=== PATIENT | female | born 1995 | race Caucasian/White ===

== ENCOUNTER 2016-04-16 18:05 | Emergency (ER) | payer MEDICAID ==
[~2016-04-16] VITALS: Ht 160 cm; Wt 53.2 kg
[2016-04-16 18:07] VITALS: Ht 160 cm; Wt 53.2 kg
--- NOTE | 2016-04-16 19:50 | ERD ---
ER Documentation Chief Complaint Date/Time DATE: 04/16/16 TIME: 19:49 Chief Complaint spotting today , abd cramping , 5 weeks preg , lmp 03/10/16 HPI 21-year-old female is A0 with last measure. On March 10, 2016 comes in with vaginal spotting and pelvic cramping for the past day. She states that she has some symptoms yesterday and went to the clinic and had a positive test. She denies fevers, chills, vomiting. She denies dizziness, chest pain or shortness breath. ROS All systems reviewed and are negative except as per history of present illness. Medications Home Meds Reported Medications [None] No Conflict Check 12/17/09 Allergies Allergies: Coded Allergies: No Known Drug Allergies (Verified Allergy, Mild, 12/17/09) PMhx/Soc Medical and Surgical Hx: pt denies Medical Hx, pt denies Surgical Hx History of Surgery: No Anesthesia Reaction: No Hx Neurological Disorder: No Hx Respiratory Disorders: No Hx Cardiac Disorders: No Hx Psychiatric Problems: No Hx Miscellaneous Medical Probl: No Hx Alcohol Use: No Hx Substance Use: No Hx Tobacco Use: No Smoking Status: Never smoker Physical Exam Vitals Vital Signs Date Time Temp Pulse Resp B/P Pulse Ox O2 Delivery O2 Flow Rate FiO2 04/16/16 21:25 99.2 70 17 117/79 100 Room Air 04/16/16 18:07 98.1 90 18/135 79 Physical Exam General: Well-developed, well-nourished. The patient appears in no acute distress. HEENT: Head is normocephalic, atraumatic. No scleral icterus. Neck: Supple. Nontender. Lungs: Clear to auscultation. Normal air movement. Heart: Regular rate and rhythm. S1 and S2 are normal. No murmurs, gallops, or rubs. Abdomen: Soft, nontender, nondistended. Bowel sounds are normoactive. Extremities: No clubbing or cyanosis. Normal pulses. Moving extremities x 4. No weakness. Neurologic: Alert and oriented 3. No focal deficits. Skin: Normal turgor. No rash or lesions. Result Diagram: 04/16/161934 Results 24 hrs Laboratory Tests Test 04/16/16 19:35 Basophils # 0.010^3/ul Basophils % 0.3% Beta HCG, Quantitative 56883.0mIU/ml Eosinophils # 0.010^3/ul Eosinophils % 0.0% Hematocrit 39.5% Hemoglobin 13.8g/dl Lymphocytes # 1.110^3/ul Lymphocytes % 17.0% Mean Corpuscular Hemoglobin 31.9pg Mean Corpuscular Hemoglobin Concent 34.9g/dl Mean Corpuscular Volume 91.4fl Mean Platelet Volume 9.9fl Monocytes # 0.610^3/ul Monocytes % 8.4% Neutrophils # 4.810^3/ul Neutrophils % 74.0% Nucleated Red Blood Cells # 0.010^3/ul Nucleated Red Blood Cells % 0.0/100WBC Platelet Count 57503^3/UL Red Blood Count 4.3210^6/ul Red Cell Distribution Width 11.9% Urine Bilirubin NEGATIVE Urine Clarity CLEAR Urine Color LT. YELLOW Urine Epithelial Cells FEW Urine Glucose NEGATIVE% Urine Hemoglobin TRACE Urine Ketones 40 Urine Leukocyte Esterase NEGATIVE Urine Microscopic RBC 0-2/HPF Urine Microscopic WBC 0-2/HPF Urine Nitrite NEGATIVE Urine Specific [place] 1.015 Urine Total Protein NEGATIVE Urine Urobilinogen 0.2 E.U./dL Urine pH 6.0 White Blood Count 6.510^3/ul PROCEDURE: US OB. CLINICAL INDICATION: with spotting. TECHNIQUE: Transabdominal and transvaginal imaging of the uterus was performed. Images are reviewed on a high-resolution PACS workstation. COMPARISON: None available FINDINGS: Intrauterine is identified. The crown-rump length equals 0.26 cm. The estimated gestational age equals 6 weeks and 1 day by ultrasound criteria. pole and yolk sac are visualized. Normal cardiac activity is identified and measures 104 beats per minute. There is 2.5 x 1.5 x 1.7 cm subchorionic bleed. There is a cyst in the right ovary measures 2.5 x 2.2 x 1.6 cm. The left ovary is unremarkable. The ovaries demonstrate vascular Doppler flow. No free fluid is noted. IMPRESSION: 1. Single live intrauterine with an estimated gestational age of 6 weeks and 1 day by ultrasound criteria and an estimated date of delivery of . 2. A 2.5 x 1.5 x 1.7 cm subchorionic bleed. 3. A 2.5 cm right ovarian cyst. RPTAT: QQ .Loraine Pimentel MD, MD Date Time Electronically viewed and signed by .Loraine Pimentel MD, MD on 04/16/2016 20:33 Procedures/MDM ED course: She was kept informed of our ER course, labs, urine were obtained, pelvic ultrasound was obtained. I offered her Tylenol at this time, patient kindly declined. MDM: 21-year-old female comes to the ER with vaginal bleeding and pelvic cramping, a pelvic ultrasound shows a single live intrauterine at 6 weeks, there is a subchorionic hemorrhage and finding of her right ovarian cyst. HCG quantitative was approximately 26,000, type and Rh is B+. There is no indication for RhoGam. Furthermore, blood work was unremarkable, there is no leukocytosis, anemia. Urine was negative for infection. She is to return if she has any worsening pain, heavier bleeding, otherwise follow up with OB in 3-4 days. Departure Diagnosis: Primary Impression: Vaginal bleeding in patient at less than 20 weeks gestation Condition: Good LOC SULLIVAN PA-C Apr 16, 2016 19:50
[2016-04-16 19:52] LABS: ADD SCAN DIFF NO
[2016-04-16 19:54] LABS: BASOPHILS % 0.3 % (0.0-2.0); HEMATOCRIT 39.5 % (37.0-47.0); HEMOGLOBIN 13.8 g/dl (12.0-16.0); LYMPHOCYTES # 1.1 10^3/ul (0.8-2.9); MEAN CORPUSCULAR HEMOGLOBIN 31.9 pg (29.0-33.0); MEAN CORPUSCULAR HGB CONC 34.9 g/dl (32.0-37.0); MEAN CORPUSCULAR VOLUME 91.4 fl (82.0-101.0); MEAN PLATELET VOLUME 9.9 fl (7.4-10.4); MONOCYTE # 0.6 10^3/ul (0.3-0.9); MONOCYTES % 8.4 % (0.0-11.0); NEUTROPHIL # 4.8 10^3/ul (1.6-7.5); PLATELET COUNT 246 10^3/UL (140-415); RED BLOOD COUNT 4.32 10^6/ul (4.20-5.40); RED CELL DISTRIBUTION WIDTH 11.9 % (11.5-14.5); WHITE BLOOD COUNT 6.5 10^3/ul (4.8-10.8)
[2016-04-16 19:55] LABS: ADD UMIC YES; URINE BILIRUBIN (Dip) NEGATIVE (NEGATIVE); URINE BLOOD (Dip) TRACE (NEGATIVE); URINE COLOR LT. YELLOW (YELLOW); URINE GLUCOSE (Dip) NEGATIVE (NEGATIVE); URINE KETONES (Dip) 40 (NEGATIVE); URINE LEUKOCYTE ESTERASE (Dip) NEGATIVE (NEGATIVE); URINE NITRITE (Dip) NEGATIVE (NEGATIVE); URINE TOTAL PROTEIN (Dip) NEGATIVE (NEGATIVE); URINE UROBILINOGEN (Dip) 0.2 E.U./dL (0.1-1.0)
[2016-04-16 20:23] LABS: URINE RBCS 0-2 /HPF (0)
--- NOTE | 2016-04-16 20:34 | RADRPT ---
PROCEDURE: US OB. CLINICAL INDICATION: with spotting. TECHNIQUE: Transabdominal and transvaginal imaging of the uterus was performed. Images are review ed on a high-resolution PACS workstation. COMPARISON: None available FINDINGS: Intrauterine is identified. The crown-rump length equals 0.26 cm. The estimated gestatio nal age equals 6 weeks and 1 day by ultrasound criteria. pole and yolk sac are visualized. No rmal cardiac activity is identified and measures 104 beats per minute. There is 2.5 x 1.5 x 1 .7 cm subchorionic bleed. There is a cyst in the right ovary measures 2.5 x 2.2 x 1.6 cm. The left o vary is unremarkable. The ovaries demonstrate vascular Doppler flow. No free fluid is noted. IMPRESSION: 1. Single live intrauterine with an estimated gestational age of 6 weeks and 1 day by ult rasound criteria and an estimated date of delivery of 12/09/2016. 2. A 2.5 x 1.5 x 1.7 cm subchorionic bleed. 3. A 2.5 cm right ovarian cyst. RPTAT: QQ .Loraine Pimentel MD, MD Date Time Electronically viewed and signed by .Loraine Pimentel MD, MD on 04/16/2016 20:33 .N/
[2016-04-16 21:25] VITALS: BP 117/79; PULSE 70; RESP 17; TEMP 99.2
== END 2016-04-17 00:01 | disposition home or self-care (01) ==
LOC: FTE 18:05
DX: O20.9 Hemorrhage in early pregnancy, unspecified (principal); R10.2 Pelvic and perineal pain; Z3A.01 Less than 8 weeks gestation of pregnancy
CPT/HCPCS: 36415; 76801; 81001; 84702; 85025; 86900; 86901; Z7502; 81003

== ENCOUNTER 2016-07-15 11:27 | Emergency (ER) | payer BC ==
[~2016-07-15] VITALS: Wt 61.0 kg
[2016-07-15 12:53] LABS: ADD SCAN DIFF NO
[2016-07-15 12:55] LABS: BASOPHILS % 0.4 % (0.0-2.0); EOSINOPHILS # 0.1 10^3/ul (0.0-0.5); EOSINOPHILS % 1.4 % (0.0-7.0); HEMATOCRIT 33.9 % (37.0-47.0); HEMOGLOBIN 11.8 g/dl (12.0-16.0); LYMPHOCYTES # 1.5 10^3/ul (0.8-2.9); LYMPHOCYTES % 19.2 % (15.0-51.0); MEAN CORPUSCULAR HEMOGLOBIN 32.5 pg (29.0-33.0); MEAN CORPUSCULAR HGB CONC 34.8 g/dl (32.0-37.0); MEAN CORPUSCULAR VOLUME 93.4 fl (82.0-101.0); MEAN PLATELET VOLUME 9.6 fl (7.4-10.4); MONOCYTE # 0.6 10^3/ul (0.3-0.9); MONOCYTES % 6.9 % (0.0-11.0); NEUTROPHIL # 5.7 10^3/ul (1.6-7.5); NEUTROPHILS % 71.6 % (39.0-77.0); PLATELET COUNT 238 10^3/UL (140-415); RED BLOOD COUNT 3.63 10^6/ul (4.20-5.40); RED CELL DISTRIBUTION WIDTH 12.3 % (11.5-14.5); WHITE BLOOD COUNT 7.9 10^3/ul (4.8-10.8)
--- NOTE | 2016-07-15 13:11 | RADRPT ---
PROCEDURE: US Obstetric greater than 14 weeks. CLINICAL INDICATION: Pain TECHNIQUE: Multiple sonographic images of the pelvis were obtained. Transabdominal imaging only w as performed. The images were reviewed on a PACS workstation. COMPARISON: No prior studies are available for comparison. FINDINGS: Single intrauterine gestation. Cephalic presentation. heart rate is 139 bpm. The cervix is not well visualized. Measurements were made in order to determine age. The results are as follows: BPD = 4.41 cm HC = 16.83 cm AC = 15.08 cm FL = 3.01 cm Estimated gestational age is 19 weeks 4 days (based on ultrasound measurements). Estimated date of delivery is 12/05/2016. EFW = 313 g +/- 50 g. (58%) The placenta is posterior. There is no evidence for an abruption or placenta previa. Amniotic fluid volume is grossly normal. IMPRESSION: 1. Single live intrauterine gestation of 19 weeks 4 days (based on ultrasound measurements), as abo ve. RPTAT: EE .Darnell Vivar MD, Date Time Electronically viewed and signed by .Darnell Vivar MD, on 07/15/2016 13:10 .R/
[2016-07-15 13:16] LABS: ALBUMIN 3.3 g/dl (3.3-4.9)
--- NOTE | 2016-07-15 13:16 | ERD ---
ER Documentation Chief Complaint Date/Time DATE: 07/15/16 TIME: 13:15 Chief Complaint back pain x2day/diarrhea last night 19weeks preg HPI This is a 21-year-old female stating that she is 19 weeks complaining of bilateral 6 out of 10 achy lumbar back pain that started around 3 days, patient states that she feels as if it is muscular and pain is increased with movement and standing. Patient also states that she has had one episode of diarrhea this morning episode of diarrhea last night. She denies any nausea, vomiting, fevers, constipation. Patient states that she has an OB/ BULK LOADER who she saw last week and said everything was normal. She has not tried any medications ROS All systems reviewed and are negative except as per history of present illness. Medications Home Meds Active Scripts Cephalexin* (Keflex*) 500 Mg Capsule, 500 MG PO TID for 5 Days, CAP Prov:OSKAR RUTH PA-C 07/15/16 Reported Medications [None] No Conflict Check 12/17/09 Allergies Allergies: Coded Allergies: No Known Drug Allergies (Verified Allergy, Mild, 12/17/09) PMhx/Soc History of Surgery: No Anesthesia Reaction: No Hx Neurological Disorder: No Hx Respiratory Disorders: No Hx Cardiac Disorders: No Hx Psychiatric Problems: No Hx Miscellaneous Medical Probl: No Hx Alcohol Use: No Hx Substance Use: No Hx Tobacco Use: No Physical Exam Vitals Vital Signs Date Time Temp Pulse Resp B/P Pulse Ox O2 Delivery O2 Flow Rate FiO2 07/15/16 11:30 98.7 79 20 117/67 100 Physical Exam GENERAL: well-developed/well-nourished, in no apparent distress, non-toxic appearing HENT: NC/AT, moist mucous membranes EYES: Conjunctiva normal NECK: Supple, no lymphadenopathy PULM: CTA bilaterally, no rales, rhonchi, or wheezing heard CV: Normal S1S2, RRR, good capillary refill GI: Soft, non-distended, nontender Normal bowel sounds, no masses or organomegaly felt on exam No gross peritonitis, no bruits Negative Rovsing, negative Reddy, negative McBurney's point, Negative CVAT BACK: No masses, nontender to palpation left lumbar back, pain with range of motion EXT: No clubbing, cyanosis, or edema NEURO: Alert and Orientated SKIN: Intact, normal turgor PSYCH: Normal mood and mentation Result Diagram: 07/15/16 1245 07/15/16 1245 Results 24 hrs Laboratory Tests Test 07/15/16 12:45 07/15/16 13:00 White Blood Count 7.910^3/ul Red Blood Count 3.6310^6/ul Hemoglobin 11.8g/dl Hematocrit 33.9% Mean Corpuscular Volume 93.4fl Mean Corpuscular Hemoglobin 32.5pg Mean Corpuscular Hemoglobin Concent 34.8g/dl Red Cell Distribution Width 12.3% Platelet Count 29733^3/UL Mean Platelet Volume 9.6fl Neutrophils % 71.6% Lymphocytes % 19.2% Monocytes % 6.9% Eosinophils % 1.4% Basophils % 0.4% Nucleated Red Blood Cells % 0.0/100WBC Neutrophils # 5.710^3/ul Lymphocytes # 1.510^3/ul Monocytes # 0.610^3/ul Eosinophils # 0.110^3/ul Basophils # 0.010^3/ul Nucleated Red Blood Cells # 0.010^3/ul Sodium Level 138mmol/L Potassium Level 4.1mmol/L Chloride Level 106mmol/L Carbon Dioxide Level 24mmol/L Anion Gap 12 Blood Urea Nitrogen 7mg/dl Creatinine 0.65mg/dl Glucose Level 82mg/dl Calcium Level 9.3mg/dl Total Bilirubin 0.1mg/dl Direct Bilirubin 0.00mg/dl Indirect Bilirubin 0.1mg/dl Aspartate Amino Transf (AST/SGOT) 23IU/L Alanine Aminotransferase (ALT/SGPT) 37IU/L Alkaline Phosphatase 52IU/L Total Protein 6.3g/dl Albumin 3.3g/dl Globulin 3.00g/dl Albumin/Globulin Ratio 1.10 Lipase 97U/L Urine Color LT. YELLOW Urine Clarity CLEAR Urine pH 7.5 Urine Specific [place] 1.010 Urine Ketones NEGATIVE Urine Nitrite NEGATIVE Urine Bilirubin NEGATIVE Urine Urobilinogen 0.2 E.U./dL Urine Leukocyte Esterase TRACE Urine Microscopic RBC 0-2/HPF Urine Microscopic WBC 0-2/HPF Urine Squamous Epithelial Cells FEW Urine Bacteria FEW Urine Hemoglobin TRACE Urine Glucose NEGATIVE% Urine Total Protein NEGATIVE Procedures/MDM 21-year-old female presented to the emergency room complaining of lumbar back pain for the past 3 days which is likely due to musculoskeletal and region. I have a low suspicion for fracture, dislocation, nephrolithiasis, pyelonephritis due to physical examination and diagnostic testing. In addition patient also had an episode of diarrhea this morning and last night which can likely be due to a viral gastroenteritis. I do not think that she has any signs or symptoms of acute abdomen at this time due to physical examination. Patient has stable vital signs, she is afebrile, she speaking clearly and does not seem to be in any distress. Her examination is unremarkable. Blood work present in the ED. There is no evidence of leukocytosis or anemia. CMP was unremarkable for renal, liver or electrolyte abnormalities. Lipase is unremarkable. OB ultrasound was done in the ED and radiologist stated below Single intrauterine gestation. Cephalic presentation. heart rate is 139 bpm. The cervix is not well visualized. The placenta is posterior. There is no evidence for an abruption or placenta previa. Amniotic fluid volume is grossly normal. Single live intrauterine gestation of 19 weeks 4 days (based on ultrasound measurements), as above. I discussed this with the patient, patient was given Tylenol in the ED and I have reassessed her and she feels better. I discussed with her that she is suitable to follow-up with her primary care physician and [facility]. Discussed return to the ER for any worsening signs or symptoms. Patient understands and agrees with this plan Departure Diagnosis: Primary Impression: Back pain Additional Impression: Diarrhea Condition: Stable OSKAR RUTH PA-C July 15, 2016 13:16
[2016-07-15 13:17] LABS: POTASSIUM 4.1 mmol/L (3.5-5.1)
[2016-07-15 13:19] LABS: ALBUMIN/GLOBULIN RATIO 1.1; BILIRUBIN,INDIRECT 0.1 mg/dl (0-1.1); BILIRUBIN,TOTAL 0.1 mg/dl (0.2-1.3); CREATININE 0.65 mg/dl (0.44-1.00); TOTAL PROTEIN 6.3 g/dl (6.1-8.1)
[2016-07-15 13:20] LABS: CALCIUM 9.3 mg/dl (8.4-10.2)
[2016-07-15 13:24] LABS: ADD UMIC YES; URINE BILIRUBIN (Dip) NEGATIVE (NEGATIVE); URINE BLOOD (Dip) TRACE (NEGATIVE); URINE COLOR LT. YELLOW (YELLOW); URINE GLUCOSE (Dip) NEGATIVE (NEGATIVE); URINE KETONES (Dip) NEGATIVE (NEGATIVE); URINE LEUKOCYTE ESTERASE (Dip) TRACE (NEGATIVE); URINE NITRITE (Dip) NEGATIVE (NEGATIVE); URINE TOTAL PROTEIN (Dip) NEGATIVE (NEGATIVE); URINE UROBILINOGEN (Dip) 0.2 E.U./dL (0.1-1.0)
[2016-07-15 13:39] LABS: URINE RBCS 0-2 /HPF (0)
[2016-07-15 13:40] LABS: BACTERIA,URINE FEW; SQUAMOUS EPITHELIAL CELL,UR FEW
[2016-07-15] MEDS ORDERED: CEPH-443 PO (14:06)
== END 2016-07-15 14:30 | disposition home or self-care (01) ==
LOC: FTE 11:27
DX: O99.89 Other specified diseases and conditions complicating pregnancy, childbirth and the puerperium (principal); M54.5 Low back pain; R19.7 Diarrhea, unspecified; Z3A.19 19 weeks gestation of pregnancy
CPT/HCPCS: 36415; 76805; 80053; 81001; 83690; 85025; 87086

== ENCOUNTER 2016-10-14 05:00 | Outpatient (CLI) | payer OTHER ==
[~2016-10-14] VITALS: Ht 160 cm; Wt 72.4 kg
[~2016-10-14 05:00] MED LIST: CEPH-443 PO
[2016-10-14 05:26] VITALS: BP 115/64; PULSE 75; RESP 18
[2016-10-14] MEDS ORDERED: PRENAT PO (05:29)
[2016-10-14] MEDS ORDERED: FERR134T PO (05:29)
[2016-10-14] MEDS ORDERED: CALC600T11 PO (05:29)
[2016-10-14] MEDS ORDERED: LACTATED RINGER'S 1,000 ML IV ONE (06:00)
[2016-10-14] MEDS ORDERED: LACTATED RINGER'S 1,000 ML IV SCH (06:30)
--- NOTE | 2016-10-14 06:30 | RADRPT ---
PROCEDURE: OB ultrasound for biophysical profile CLINICAL INDICATION: Deceleration TECHNIQUE: Multiple sonographic images of the pelvis were obtained. Transabdominal views of the g ravid uterus are available for review. The images were reviewed on a PACS workstation. COMPARISON: None FINDINGS: breathing movement = 2/2 tone = 2/2 motion = 2/2 SHARRI = 2/2 SHARRI = 17.2 cm Single live intrauterine with cardiac activity of 131 bpm. position is cephal ic. The placenta is posterior. The cervix is closed with a length of 4.3 cm. IMPRESSION: 1. Single live intrauterine gestation. 2. Biophysical profile = 8/8. 3. SHARRI = 17.8 cm. RPTAT: HH .Ilsa Martinez MD, Date Time Electronically viewed and signed by .Ilsa Martinez MD, on 10/14/2016 06:30 .G/
[2016-10-14 06:46] LABS: ADD UMIC YES; UR ASCORBIC ACID NEGATIVE (NEGATIVE); UR BACTERIA FEW /HPF (NONE SEEN); UR BILIRUBIN (Dip) NEGATIVE (NEGATIVE); UR BLOOD (Dip) 3+ mg/dL (NEGATIVE); UR CLARITY CLEAR (CLEAR); UR COLOR YELLOW (YELLOW); UR GLUCOSE (Dip) NEGATIVE (NEGATIVE); UR KETONES (Dip) NEGATIVE (NEGATIVE); UR LEUKOCYTE ESTERASE (Dip) NEGATIVE Leu/ul (NEGATIVE); UR NITRITE (Dip) NEGATIVE (NEGATIVE); UR RBC > 182 /HPF (0-5); UR SPECIFIC GRAVITY (Dip) 1.013 (1.003-1.030); UR SQUAMOUS EPITHELIAL CELL FEW /HPF (FEW); UR TOTAL PROTEIN (Dip) NEGATIVE (NEGATIVE); UR UROBILINOGEN (Dip) NEGATIVE (NEGATIVE)
[2016-10-14 06:51] LABS: BASOPHILS % 0.3 % (0.0-2.0); EOSINOPHILS # 0.2 10^3/ul (0.0-0.5); EOSINOPHILS % 2.2 % (0.0-7.0); HEMATOCRIT 33.3 % (37.0-47.0); HEMOGLOBIN 11.6 g/dl (12.0-16.0); LYMPHOCYTES # 2.2 10^3/ul (0.8-2.9); LYMPHOCYTES % 22.1 % (15.0-51.0); MEAN CORPUSCULAR HGB CONC 34.8 g/dl (32.0-37.0); MEAN PLATELET VOLUME 9.8 fl (7.4-10.4); MONOCYTE # 0.7 10^3/ul (0.3-0.9); MONOCYTES % 7.3 % (0.0-11.0); NEUTROPHILS % 66.7 % (39.0-77.0); PLATELET COUNT 204 10^3/UL (140-415); RED BLOOD COUNT 3.62 10^6/ul (4.20-5.40); RED CELL DISTRIBUTION WIDTH 12.5 % (11.5-14.5); WHITE BLOOD COUNT 9.8 10^3/ul (4.8-10.8)
--- NOTE | 2016-10-14 08:04 | PN ---
Triage Information Date/Time Reason for visit: rjght low back pain radiating down the leg Weeks of Gestation 32 weeks /Para Diabetes: none Hypertention: none Objective Vital Signs Date Time Temp Pulse Resp B/P Pulse Ox O2 Delivery O2 Flow Rate FiO2 10/14/16 05:26 98.4 75 18 115/64 Room Air Heart Rate: 120's Heart Rate Comments Category I Contractions: 6-10 Minutes Apart Exam Cervix is closed. Results/Medications Result Diagram: 10/14/16 0600 Results 24 hrs Laboratory Tests Test 10/14/16 05:00 10/14/16 06:00 Urine Color YELLOW Urine Clarity CLEAR Urine pH 7.0 Urine Specific [place] 1.013 Urine Ketones NEGATIVE Urine Nitrite NEGATIVE Urine Bilirubin NEGATIVE Urine Urobilinogen NEGATIVE Urine Leukocyte Esterase NEGATIVE Urine Microscopic RBC > 182 H Urine Microscopic WBC 9 H Urine Squamous Epithelial Cells FEW Urine Bacteria FEW A Urine Hemoglobin 3+ H Urine Glucose NEGATIVE Urine Total Protein NEGATIVE White Blood Count 9.8 # Red Blood Count 3.62 L Hemoglobin 11.6 L Hematocrit 33.3 L Mean Corpuscular Volume 92.0 Mean Corpuscular Hemoglobin 32.0 Mean Corpuscular Hemoglobin Concent 34.8 Red Cell Distribution Width 12.5 Platelet Count 204 Mean Platelet Volume 9.8 Neutrophils % 66.7 Lymphocytes % 22.1 Monocytes % 7.3 Eosinophils % 2.2 Basophils % 0.3 Nucleated Red Blood Cells % 0.0 Neutrophils # (Manual) 7 Lymphocytes # 2.2 Monocytes # 0.7 Eosinophils # 0.2 Basophils # 0.0 Nucleated Red Blood Cells # 0.0 Medications Current Medications Lactated Ringer's (Lr) 1,000 ml @ 125 mls/hr Q8H IV Last administered on 07:16; Admin Dose 125 MLS/HR; Start 10/14/16 at 06:30 Imaging Results Cervical length 4.3 cm BPP 09/28 Disposition: Discharge Assessment/Plan No sign of labor. D/C home. MICK JOSEPH MD Oct 14, 2016 08:04
--- NOTE | 2016-10-14 08:08 | TRIAGE ---
OB Triage Datetime Report Generated by CPN: 10/14/2016 08:08 Datetime: 10/14/2016 07:10 Stage of : OB Triage Labor Evaluation Frequency: IRREG Monitor Mode: External Duration (sec)2399: 60-90 Pattern: Normal: <= 5 Contractions in 10 Minutes Resting Tone [place]: Relaxed Heart Rate FHR Baseline Rate: 110 Monitor Mode: External US Variability: Moderate 6-25 bpm Accelerations: 15X15 Decelerations: Variable Category: Category II Pain Assessment Pain Scale: 4 Pain Presence: Intermittent Pain Type: Cramping Pain Location: Abdomen; Back Pain Goal: 0 Pain Relief Measures: Comfort Measures Datetime: 10/14/2016 07:04 Quality: Mild Pattern: Normal: <= 5 Contractions in 10 Minutes Resting Tone [place]: Relaxed Heart Rate FHR Baseline Rate: 120 Monitor Mode: External US FHR Baseline Changes: No Baseline Change Variability: Moderate 6-25 bpm Accelerations: 15X15 Decelerations: None Category: Category I Datetime: 10/14/2016 06:37 Time of Arrival: 10/14/2016 04:37 EGA: 32.4 Arrived By: Wheelchair Arrived From: Home Chief Complaint: c/o RLQ and back pain since 1999 Movement: Present Contractions: Denies/Absent Rupture of Membranes: Denies Vaginal Bleeding: None Vaginal Discharge: Denies Recent Sexual Intercouse: Denies Abdominal Trauma: Not Applicable Patient Complaints: Back Pain; Other Time Provider Notified: 10/14/2016 05:37 Provider Notified: Dr Wilkes Initial Plan: EFM,CVL, UA,CBC,BPP,IV LR Datetime: 10/14/2016 06:00 Stage of : OB Triage Datetime: 10/14/2016 05:37 Stage of : OB Triage Labor Evaluation Frequency: 6-10 Monitor Mode: External Duration (sec)2399: 40-60 Quality: Mild Pattern: Normal: <= 5 Contractions in 10 Minutes Resting Tone [place]: Relaxed Heart Rate FHR Baseline Rate: 125 Monitor Mode: External US FHR Baseline Changes: No Baseline Change Variability: Moderate 6-25 bpm Accelerations: 15X15 Decelerations: Variable Datetime: 10/14/2016 04:55 Stage of : OB Triage Maternal Assessment Level of Consciousness: Fully Conscious Headache: Denies Nausea/Vomiting: Denies RUQ Epigastric Pain: Denies Temperature Route: Oral Monitor Mode: External Resting Tone [place]: Relaxed Heart Rate FHR Baseline Rate: 125 Pain Assessment Pain Scale: 6 Pain Presence: Intermittent Pain Type: Stabbing Pain Location: Abdomen; Back Pain Goal: 0
== END 2016-10-14 08:08 | disposition home or self-care (01) ==
LOC: OBT 05:00 → L-D 05:00 → OBT 08:08
PROVIDERS: ATTEND Obstetrics & Gynecology
DX: O26.893 Other specified pregnancy related conditions, third trimester (principal); Z3A.32 32 weeks gestation of pregnancy; M54.5 Low back pain
CPT/HCPCS: 36415; 76817; 76818; 81001; 85025; 96360; 96361; J7120; Z7500; G0463